=== PATIENT | female | born 1975 | race American Indian/Alaskan Native ===

== ENCOUNTER 2017-02-23 02:30 | Emergency (ER) | payer SELFPAY ==
[2017-02-23] MEDS ORDERED: TYLENOL ONE (02:42)
[2017-02-23] MEDS ORDERED: TYLENOL PO ONE (02:51)
[2017-02-23 03:30] LABS: Bilirubin,Urine NEG (Negative); Blood,Urine NEG (Negative); Ketones,Urine NEG (Negative); Leukocyte Esterase,Urine NEG (Negative); Mucus,Urine FEW /HPF; Nitrite,Urine NEG (Negative); Protein,Urine <15 mg/dL mg/dL (Negative); Urobilinogen,Urine < 2.0 mg/dL (<2.0); WBC,Urine < 1.0 /HPF (0.0-6.0)
[2017-02-23 03:42] LABS: Alanine Aminotransferase 14 units/L (7-56); Albumin 4.1 g/dL (3.9-5); Albumin/Globulin Ratio 1.2 %; Alkaline Phosphatase 64 units/L (35-129); Anion Gap 16 mmol/L; BUN/Creatinine Ratio 16.25; Bilirubin,Total 1.1 mg/dL (0.1-1.2); Blood Urea Nitrogen 13 mg/dL (7-17); Calcium 9.1 mg/dL (8.4-10.2); Carbon Dioxide 25 mmol/L (22-30); Chloride 100.9 mmol/L (98-107); Glucose 113 mg/dL (65-100); Lipase 30 units/L (13-60); Sodium 138 mmol/L (137-145); Total Protein 7.4 g/dL (6.3-8.2)
[2017-02-23 03:44] LABS: Basophils % (Auto) 0.4 % (0.0-1.8); Eosinophils % (Auto) 0.9 % (0.0-4.3); Hematocrit 40.5 % (30.3-42.9); Mean Corpuscular HGB Conc 32 % (30-34); Mean Corpuscular Hemoglobin 27 pg (28-32); Mean Corpuscular Volume 83 fl (79-97); Platelet Count 201 K/mm3 (140-440); Red Blood Count 4.89 M/mm3 (3.65-5.03); Red Cell Distribution Width 14.3 % (13.2-15.2); White Blood Count 8.6 K/mm3 (4.5-11.0)
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
[2017-02-23] MEDS ORDERED: PERCOCET 5/325 PO ONE (08:11)
[2017-02-23] MEDS ORDERED: FLEXERIL PO ONE (08:11)
[2017-02-23] MEDS ORDERED: NACL ONE (08:50)
--- NOTE | 2017-02-23 09:54 | Cat Scan Report ---
CT abdomen and pelvis with contrast: Abdominal pain. Transverse images were obtained from lower chest was scanned with coronal and sagittal 2-D reformatted images. The visualized lungs are clear. The abdominal and retroperitoneal organs are unremarkable. Abdominal aorta is normal. The bowel is unopacified. There are a few diverticula seen in the distal descending colon with no inflammatory changes. The appendix is visible and unremarkable. There are 2 seemingly separate relatively short length segments of fluid-filled dilated small bowel. One of these is in the mid abdomen and the other is in the low abdomen/pelvis. No obvious associated inflammatory changes and no strictures are identified. Of note is that in 2012 the patient also had a CT was dilated small bowel loops in the mid and lower abdomen. Impression: Nonspecific areas of small bowel dilatation. These appear to either be chronic or recurrent with an indeterminate etiology. The possibility of mild adhesions from possible prior surgery should be entertained with appropriate clinical history.
[2017-02-23 10:39] VITALS: BP 151/83
== END 2017-02-23 11:01 | disposition home or self-care (01) ==
LOC: ED 02:30
DX: S39.012A Strain of muscle, fascia and tendon of lower back, initial encounter (principal); K57.30 Diverticulosis of large intestine without perforation or abscess without bleeding; X58.XXXA Exposure to other specified factors, initial encounter; Y93.9 Activity, unspecified; Y92.9 Unspecified place or not applicable; Y99.9 Unspecified external cause status
CPT/HCPCS: 36415; 74177; 80053; 81001; 83690; 85025; 99284; Q9967

== ENCOUNTER 2020-02-08 19:02 | Emergency (ER) | payer SELFPAY ==
--- NOTE | 2020-02-08 19:57 | Event Note ---
ED Screening Note Date of service: 02/08/20 Time: 19:27 ED Screening Note: 44 y/o female comes in for resp sxs and fever. This initial assessment/diagnostic orders/clinical plan/treatment(s) is/are subject to change based on patients health status, clinical progression and re- assessment by fellow clinical providers in the ED. Further treatment and workup at subsequent clinical providers discretion. Patient/guardian urged not to elope from the ED as their condition may be serious if not clinically assessed and managed. Initial orders include:
[2020-02-08] MEDS ORDERED: SODIUM CHLORIDE 0.9% 1000 ML IV SOLN IV ONE (19:58)
--- NOTE | 2020-02-08 20:06 | XRay Report ---
CHEST 2 VIEWS INDICATION: cough. COMPARISON: None. FINDINGS: Support devices: None. Heart: Within normal limits. Lungs/Pleura: No acute air space or interstitial disease. No significant pleural effusion. IMPRESSION: No acute findings. Signer Name: Dustin Gunter MD Signed: 02/08/2020 8:01 PM Workstation Name: [id number]
[2020-02-08 21:38] LABS: Basophils % (Auto) 0.3 % (0.0-1.8); Eosinophils % (Auto) 0.1 % (0.0-4.3); Hematocrit 40.6 % (30.3-42.9); Hemoglobin 13.7 gm/dl (10.1-14.3); Lymphocytes # (Auto) 0.5 K/mm3 (1.2-5.4); Lymphocytes % (Auto) 5.7 % (13.4-35.0); Mean Corpuscular HGB Conc 34 % (30-34); Mean Corpuscular Volume 83 fl (79-97); Monocytes # (Auto) 0.7 K/mm3 (0.0-0.8); Monocytes % (Auto) 8.6 % (0.0-7.3); Platelet Count 202 K/mm3 (140-440); Red Cell Distribution Width 14.7 % (13.2-15.2)
[2020-02-08 21:57] LABS: Albumin 4.4 g/dL (3.9-5); BUN/Creatinine Ratio 16; Blood Urea Nitrogen 11 mg/dL (7-17); Calcium 9.5 mg/dL (8.4-10.2); Hemolysis Index 121
[2020-02-08 22:06] LABS: Alanine Aminotransferase 15 units/L (7-56)
[2020-02-08] MEDS ORDERED: ACETAMINOPHEN 325 MG TAB ONE (22:18)
[2020-02-08] MEDS ORDERED: ACETAMINOPHEN 325 MG TAB PO ONE (22:44)
[2020-02-08] MEDS ORDERED: ONDANSETRON 4 MG/2 ML INJ IV ONE (23:04)
[2020-02-08] MEDS ORDERED: KETOROLAC 30 MG/1 ML INJ IV ONE (23:04)
[2020-02-08] MEDS ORDERED: SODIUM CHLORIDE 0.9% 500 ML 500 ML ONE (23:13)
--- NOTE | 2020-02-08 23:33 | Emergency Department Report ---
ED Fever HPI - General Chief Complaint: Upper Respiratory Infection Stated Complaint: BODY PAIN, WEAK, VOMITING, AND COUGH Time Seen by Provider: 02/08/20 19:27 Source: patient Exam Limitations: no limitations - History of Present Illness Initial Comments: 44-year-old female presents to the hospital with complaints of fever and chills x3 days. Patient having generalized body aches including headache, stomachache, and diffuse myalgias. She has a dry cough with mild chest tightness and sore throat. Patient had one episode of vomiting with persistent nausea, diarrhea, and decreased p.o. intake. Patient denies dysuria. 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 She denies recent travel over the last 14 days or contact with anyone who has traveled to Covid19 infected areas, close contact with the person who is under investigation for Covid19., or close contact with someone who has tested Covid19 +. There are also no reported + Covid19 Cases at her school. Patient did not receive a flu shot. ED Review of Systems ROS: Stated complaint: BODY PAIN, WEAK, VOMITING, AND COUGH Other details as noted in HPI Comment: All other systems reviewed and negative ED Past Medical Hx - Past Medical History Previous Medical History?: Yes Additional medical history: Gastritis, back pain, - Surgical History Additional Surgical History: Colon, Hysterectomy - Social History Smoking Status: Never Smoker Substance Use Type: None - Medications Home Medications: Home Medications Medication Instructions Recorded Confirmed Last Taken Type Cyclobenzaprine [Flexeril] 10 mg PO TID PRN #15 tablet 02/23/17 Unknown Rx traMADoL [Ultram] 50 mg PO Q6HR PRN #20 tablet 02/23/17 Unknown Rx Benzonatate [Tessalon Perles] 100 mg PO Q8HR #20 capsule 02/08/20 Unknown Rx Ibuprofen [Motrin] 800 mg PO Q8HR PRN #30 tablet 02/08/20 Unknown Rx Ondansetron [Zofran Odt] 4 mg PO Q8HR PRN #20 tab.rapdis 02/08/20 Unknown Rx ED Physical Exam - General Limitations: No Limitations - Other Other exam information: General: No acute distress Head: Atraumatic Eyes: normal appearance ENT: Moist mucous membranes Neck: Normal appearance, no midline tenderness Chest: Clear to auscultation bilaterally, clear to auscultation bilaterally, no tachypnea or accessory muscle CV: Mild tachycardia Abdomen: Soft, normal bowel sounds, nontender, nondistended, no rebound or guarding Back: Normal inspection Extremity: Normal inspection, full range of motion Neuro: Alert O x 3, no facial asymmetry, speech clear, no gross motor sensory deficit Psych: Appropriate behavior Skin: No rash ED Course Vital Signs 02/08/20 02/09/20 19:25 01:18 Temperature 101.2 F H 98.6 F Pulse Rate 118 H 98 H Respiratory 18 18 Rate Blood Pressure 147/90 Blood Pressure 130/79 [Right] O2 Sat by Pulse 98 99 Oximetry ED Medical Decision Making - Lab Data Result diagrams: 02/08/20 19:33 02/08/20 19:33 Lab Results 02/08/20 02/08/20 02/08/20 Range/Units 19:33 19:33 19:33 WBC 8.2 (4.5-11.0) K/mm3 RBC 4.90 (3.65-5.03) M/mm3 Hgb 13.7 (10.1-14.3) gm/dl Hct 40.6 (30.3-42.9) % MCV 83 (79-97) fl MCH 28 (28-32) pg MCHC 34 (30-34) % RDW 14.7 (13.2-15.2) % Plt Count 202 (140-440) K/mm3 Lymph % (Auto) 5.7 L (13.4-35.0) % [place] % (Auto) 8.6 H (0.0-7.3) % Eos % (Auto) 0.1 (0.0-4.3) % Baso % (Auto) 0.3 (0.0-1.8) % Lymph # 0.5 L (1.2-5.4) K/mm3 [place] # 0.7 (0.0-0.8) K/mm3 Eos # 0.0 (0.0-0.4) K/mm3 Baso # 0.0 (0.0-0.1) K/mm3 Seg Neutrophils % 85.3 H (40.0-70.0) % Seg Neutrophils # 7.0 (1.8-7.7) K/mm3 Sodium 132 L (137-145) mmol/L Potassium 4.5 (3.6-5.0) mmol/L Chloride 95.6 L (98-107) mmol/L Carbon Dioxide 19 L (22-30) mmol/L Anion Gap 22 mmol/L BUN 11 (7-17) mg/dL Creatinine 0.7 (0.7-1.2) mg/dL Estimated GFR > 60 ml/min BUN/Creatinine Ratio 16 % Glucose 103 H (65-100) mg/dL Lactic Acid 1.90 (0.7-2.0) mmol/L Calcium 9.5 (8.4-10.2) mg/dL Total Bilirubin 0.60 (0.1-1.2) mg/dL AST 22 (5-40) units/L ALT 15 (7-56) units/L Alkaline Phosphatase 67 (35-129) units/L Total Protein 8.4 H (6.3-8.2) g/dL Albumin 4.4 (3.9-5) g/dL Albumin/Globulin Ratio 1.1 % Influenza A (Rapid) (Negative) Influenza B (Rapid) (Negative) Group A Strep Rapid (Negative) 02/08/20 Range/Units Unknown WBC (4.5-11.0) K/mm3 RBC (3.65-5.03) M/mm3 Hgb (10.1-14.3) gm/dl Hct (30.3-42.9) % MCV (79-97) fl MCH (28-32) pg MCHC (30-34) % RDW (13.2-15.2) % Plt Count (140-440) K/mm3 Lymph % (Auto) (13.4-35.0) % [place] % (Auto) (0.0-7.3) % Eos % (Auto) (0.0-4.3) % Baso % (Auto) (0.0-1.8) % Lymph # (1.2-5.4) K/mm3 [place] # (0.0-0.8) K/mm3 Eos # (0.0-0.4) K/mm3 Baso # (0.0-0.1) K/mm3 Seg Neutrophils % (40.0-70.0) % Seg Neutrophils # (1.8-7.7) K/mm3 Sodium (137-145) mmol/L Potassium (3.6-5.0) mmol/L Chloride (98-107) mmol/L Carbon Dioxide (22-30) mmol/L Anion Gap mmol/L BUN (7-17) mg/dL Creatinine (0.7-1.2) mg/dL Estimated GFR ml/min BUN/Creatinine Ratio % Glucose (65-100) mg/dL Lactic Acid (0.7-2.0) mmol/L Calcium (8.4-10.2) mg/dL Total Bilirubin (0.1-1.2) mg/dL AST (5-40) units/L ALT (7-56) units/L Alkaline Phosphatase (35-129) units/L Total Protein (6.3-8.2) g/dL Albumin (3.9-5) g/dL Albumin/Globulin Ratio % Influenza A (Rapid) Negative (Negative) Influenza B (Rapid) Negative (Negative) Group A Strep Rapid Negative (Negative) - Radiology Data Radiology results: report reviewed CHEST 2 VIEWS INDICATION: cough. COMPARISON: None. FINDINGS: Support devices: None. Heart: Within normal limits. Lungs/Pleura: No acute air space or interstitial disease. No significant pleural effusion. IMPRESSION: No acute findings. - Medical Decision Making Based on current CDC screening guidelines patient does not meet criteria for COVId19 testing. Patient's flu swabs were negative. Patient be treated clinically for viral syndrome. Received Tylenol, Toradol, normal saline, and Zofran in the ED with improvement in symptoms. No signs of hypoxia or pulmonary infiltrate at this time - Differential Diagnosis Viral syndrome, pneumonia, flu, covid19. Critical Care Time: No Critical care attestation.: If time is entered above; I have spent that time in minutes in the direct care of this critically ill patient, excluding procedure time. ED Disposition Clinical Impression: Viral illness Disposition: DC-01 TO HOME OR SELFCARE Is pt being admited?: No Does the pt Need Aspirin: No Condition: Stable Instructions: Viral Syndrome (ED) Additional Instructions: Take the medication as prescribed. Also use [id number] Tylenol for additional pain and fever relief. Follow-up with your doctor or doctor/clinic provided. Return if symptoms worsen as indicated by your discharge instructions. Prescriptions: Ibuprofen [Motrin] 800 mg PO Q8HR PRN #30 tablet PRN Reason: Pain , Severe (7-10) Benzonatate [Tessalon Perles] 100 mg PO Q8HR #20 capsule Ondansetron [Zofran Odt] 4 mg PO Q8HR PRN #20 tab.rapdis PRN Reason: Nausea And Vomiting Referrals: PRIMARY CARE, [Primary Care Provider] - 3-5 Days LADAN ESPANA MD [Staff Physician] - 3-5 Days Forms: Work/School Release Form(ED) Time of Disposition: 01:31
[2020-02-09 01:46] VITALS: BP 129/74
== END 2020-02-09 03:00 | disposition home or self-care (01) ==
LOC: ED 19:02
DX: B34.9 Viral infection, unspecified (principal)
CPT/HCPCS: 36415; 71046; 80053; 82140; 85025; 87116; 87400; 87430; 96374; 96375; 99284; J1885; J2405; J7040

== ENCOUNTER 2022-01-14 15:23 | Emergency (ER) | payer BC ==
[2022-01-14 16:04] VITALS: BP 116/76
[2022-01-14] MEDS ORDERED: diphenhydrAMINE 50 MG/ML VIAL IV ONE (19:34)
[2022-01-14] MEDS ORDERED: dexAMETHasone 20 MG/5 ML VIAL IV ONE (19:34)
--- NOTE | 2022-01-14 19:35 | Event Note ---
ED Screening Note Date of service: 01/14/22 Time: 19:34 ED Screening Note: Patient presents with complaints of left hand swelling and pain She states that this occurred to her right hand 2 weeks ago and she was treated at [place] with steroids and that her symptoms resolved She denies any injuries or IV drug use Patient also complains of abdominal pain and bloating She states history of chronic abdominal issues since the of her child 13 years ago, however she is having significant bloating and pain today No urinary symptoms per patient She does have history of abdominal surgery This initial assessment/diagnostic orders/clinical plan/treatment(s) is/are subject to change based on patients health status, clinical progression and re- assessment by fellow clinical providers in the ED. Further treatment and workup at subsequent clinical providers discretion. Patient/guardian urged not to elope from the ED as their condition may be serious if not clinically assessed and managed. Initial orders include: Labs Meds CT abdomen
[2022-01-14 20:25] LABS: Bacteria,Urine 1+ /HPF (Negative); Bilirubin,Urine NEG (Negative); Blood,Urine NEG (Negative); Color,Urine Yellow (Yellow); Mucus,Urine FEW /HPF; Protein,Urine <15 mg/dL mg/dL (Negative)
[2022-01-14 20:25] LABS: Basophils % (Auto) 0.5 % (0.0-1.8); Eosinophils # (Auto) 0.1 K/mm3 (0.0-0.4); Hematocrit 35.3 % (30.3-42.9); Hemoglobin 12.1 gm/dl (10.1-14.3); Lymphocytes # (Auto) 3.4 K/mm3 (1.2-5.4); Lymphocytes % (Auto) 39.6 % (13.4-35.0); Mean Corpuscular HGB Conc 34 % (30-34); Mean Corpuscular Volume 84 fl (79-97); Monocytes # (Auto) 0.8 K/mm3 (0.0-0.8); Monocytes % (Auto) 9.2 % (0.0-7.3); Platelet Count 221 K/mm3 (140-440); Red Blood Count 4.21 M/mm3 (3.65-5.03); Red Cell Distribution Width 14.7 % (13.2-15.2)
[2022-01-14 20:39] LABS: Alanine Aminotransferase 13 units/L (7-56); Albumin 4.1 g/dL (3.9-5); BUN/Creatinine Ratio 20; Blood Urea Nitrogen 16 mg/dL (7-17); Calcium 9.6 mg/dL (8.4-10.2); Hemolysis Index 13
--- NOTE | 2022-01-14 21:51 | Cat Scan Report ---
CT ABDOMEN AND PELVIS WITH CONTRAST INDICATION: Mid abdominal pain and bloating. TECHNIQUE: Axial CT images were obtained through the abdomen and pelvis after IV contrast. All CT scans at this location are performed using CT dose reduction for ALARA by means of automated exposure control. COMPARISON: None available. FINDINGS: LOWER CHEST: Minimal patchy dependent bibasilar atelectasis LIVER: No significant abnormality. GALLBLADDER: No significant abnormality. BILE DUCTS: No significant abnormality. PANCREAS: No significant abnormality. SPLEEN: No significant abnormality. ADRENALS: No significant abnormality. RIGHT KIDNEY and URETER: No significant abnormality. LEFT KIDNEY and URETER: No significant abnormality. STOMACH and SMALL BOWEL: No significant abnormality. COLON: No significant abnormality. APPENDIX: No significant abnormality. PERITONEUM: Small amount of free pelvic fluid. No free air. No fluid collection. LYMPH NODES: No significant adenopathy. AORTA and ARTERIES: No significant abnormality. IVC and VEINS: No significant abnormality. URINARY BLADDER: No significant abnormality. REPRODUCTIVE ORGANS: Absent ADDITIONAL FINDINGS: None. SKELETAL SYSTEM: No significant abnormality. IMPRESSION: 1. Mild bibasilar dependent pneumonia. 2. Small amount of free pelvic fluid likely physiologic. Signer Name: Da Centeno MD Signed: 01/14/2022 9:46 PM Workstation Name: [id number]
--- NOTE | 2022-01-14 23:34 | Emergency Department Report ---
ED Upper Extremity Inj HPI - General Chief Complaint: Extremity Injury, Upper Stated Complaint: HBP/SWELLING Time Seen by Provider: 01/14/22 18:14 Source: patient Mode of arrival: Ambulatory Limitations: No Limitations - History of Present Illness Initial Comments: 46-year-old female the past medical history of chronic hypertension presents to the hospital planing of left hand swelling and pain since yesterday, chronic intermittent digestive issues with increased abdominal pain yesterday, and elevated blood pressure today. Patient noticed itching to her left palm with mild swelling yesterday that then progressed to worsening swelling to the palm and dorsum of the hand. Patient also having increased abdominal cramping with pain only with deep palpation. Positive associated nausea without vomiting. Patient checked her blood pressure today and systolic was 201. She takes losartan daily and clonidine 0.1 mg as needed. Patient took clonidine prior to ED arrival with improvement in BP. No reports of headache, chest pain, or shortness of breath. Patient states she has chronic abdominal pain since receiving a hysterectomy with history of adhesions status post lysis. She also reports a history of diverticulosis. 2 weeks ago patient was at [facility] with similar symptoms of abdominal discomfort and right hand swelling. She was treated with antibiotic, Benadryl, and steroids with improvement. No reports of fevers or trauma. she does not currently have a PMD - Related Data Previous Rx's Medication Instructions Recorded Last Taken Type Cyclobenzaprine [Flexeril] 10 mg PO TID PRN #15 tablet 02/23/17 Unknown Rx traMADoL [Ultram] 50 mg PO Q6HR PRN #20 tablet 02/23/17 Unknown Rx Benzonatate [Tessalon Perles] 100 mg PO Q8HR #20 capsule 02/08/20 Unknown Rx Ibuprofen [Motrin] 800 mg PO Q8HR PRN #30 tablet 02/08/20 Unknown Rx Ondansetron [Zofran Odt] 4 mg PO Q8HR PRN #20 tab.rapdis 02/08/20 Unknown Rx Sulfamethoxazole/Trimethoprim 1 each PO BID #14 tab 01/14/22 Unknown Rx [Bactrim DS TAB] diphenhydrAMINE [Benadryl CAP] 25 mg PO Q6HR PRN #20 capsule 01/14/22 Unknown Rx predniSONE [Deltasone] 20 mg PO BID #10 tab 01/14/22 Unknown Rx Allergies Allergy/AdvReac Type Severity Reaction Status Date / Time No Known Allergies Allergy Verified 01/14/22 16:03 ED Review of Systems ROS: Stated complaint: HBP/SWELLING Other details as noted in HPI Comment: All other systems reviewed and negative ED Past Medical Hx - Past Medical History Additional medical history: Gastritis, back pain, - Surgical History Additional Surgical History: Colon, Hysterectomy - Social History Smoking Status: Never Smoker Substance Use Type: None - Medications Home Medications: Home Medications Medication Instructions Recorded Confirmed Last Taken Type Cyclobenzaprine [Flexeril] 10 mg PO TID PRN #15 tablet 02/23/17 Unknown Rx traMADoL [Ultram] 50 mg PO Q6HR PRN #20 tablet 02/23/17 Unknown Rx Benzonatate [Tessalon Perles] 100 mg PO Q8HR #20 capsule 02/08/20 Unknown Rx Ibuprofen [Motrin] 800 mg PO Q8HR PRN #30 tablet 02/08/20 Unknown Rx Ondansetron [Zofran Odt] 4 mg PO Q8HR PRN #20 tab.rapdis 02/08/20 Unknown Rx Sulfamethoxazole/Trimethoprim 1 each PO BID #14 tab 01/14/22 Unknown Rx [Bactrim DS TAB] diphenhydrAMINE [Benadryl CAP] 25 mg PO Q6HR PRN #20 capsule 01/14/22 Unknown Rx predniSONE [Deltasone] 20 mg PO BID #10 tab 01/14/22 Unknown Rx ED Physical Exam - General Limitations: No Limitations - Other Other exam information: General: No acute distress Head: Atraumatic Eyes: normal appearance ENT: Moist mucous membranes Neck: Normal appearance, no midline tenderness Chest: Clear to auscultation bilaterally CV: Regular rate and rhythm Abdomen: Soft, normal bowel sounds, nontender, nondistended, no rebound or guarding Back: Normal inspection Extremity: Left hand swelling with mild warmth. No erythema. Full range of motion of wrist and fingers. No skin rash. Neuro: Alert O x 3, no facial asymmetry, speech clear, no gross motor sensory deficit Psych: Appropriate behavior Skin: No rash ED Course Vital Signs 01/14/22 16:03 Temperature 98.6 F Pulse Rate 83 Respiratory 18 Rate Blood Pressure 116/76 [Right] O2 Sat by Pulse 100 Oximetry ED Medical Decision Making - Lab Data Result diagrams: 01/14/22 20:11 02/19/22 20:11 Lab Results 01/14/22 01/14/22 01/14/22 Range/Units 20:11 20:11 20:11 WBC 8.7 (4.5-11.0) K/mm3 RBC 4.21 (3.65-5.03) M/mm3 Hgb 12.1 (10.1-14.3) gm/dl Hct 35.3 (30.3-42.9) % MCV 84 (79-97) fl MCH 29 (28-32) pg MCHC 34 (30-34) % RDW 14.7 (13.2-15.2) % Plt Count 221 (140-440) K/mm3 Lymph % (Auto) 39.6 H (13.4-35.0) % Rogers % (Auto) 9.2 H (0.0-7.3) % Eos % (Auto) 1.0 (0.0-4.3) % Baso % (Auto) 0.5 (0.0-1.8) % Lymph # (Auto) 3.4 (1.2-5.4) K/mm3 Rogers # (Auto) 0.8 (0.0-0.8) K/mm3 Eos # (Auto) 0.1 (0.0-0.4) K/mm3 Baso # (Auto) 0.0 (0.0-0.1) K/mm3 Seg Neutrophils % 49.7 (40.0-70.0) % Seg Neutrophils # 4.3 (1.8-7.7) K/mm3 Sodium 136 L (137-145) mmol/L Potassium 3.4 L (3.6-5.0) mmol/L Chloride 99.5 (98-107) mmol/L Carbon Dioxide 23 (22-30) mmol/L Anion Gap 17 mmol/L BUN 16 (7-17) mg/dL Creatinine 0.8 (0.6-1.2) mg/dL Estimated GFR > 60 ml/min BUN/Creatinine Ratio 20 % Glucose 129 H (65-100) mg/dL Calcium 9.6 (8.4-10.2) mg/dL Total Bilirubin 0.90 (0.1-1.2) mg/dL AST 11 (5-40) units/L ALT 13 (7-56) units/L Alkaline Phosphatase 58 (35-129) units/L Total Protein 6.8 (6.3-8.2) g/dL Albumin 4.1 (3.9-5) g/dL Albumin/Globulin Ratio 1.5 % Lipase 36 (13-60) units/L HCG, Qual Negative (Negative) Urine Color (Yellow) Urine Turbidity (Clear) Urine pH (5.0-7.0) Ur Specific [place] (1.003-1.030) Urine Protein (Negative) mg/dL Urine Glucose (UA) (Negative) mg/dL Urine Ketones (Negative) mg/dL Urine Blood (Negative) Urine Nitrite (Negative) Urine Bilirubin (Negative) Urine Urobilinogen (<2.0) mg/dL Ur Leukocyte Esterase (Negative) Urine WBC (Auto) (0.0-6.0) /HPF Urine RBC (Auto) (0.0-6.0) /HPF U Epithel Cells (Auto) (0-13.0) /HPF Urine Bacteria (Auto) (Negative) /HPF Urine Mucus /HPF 01/14/22 Range/Units Unknown WBC (4.5-11.0) K/mm3 RBC (3.65-5.03) M/mm3 Hgb (10.1-14.3) gm/dl Hct (30.3-42.9) % MCV (79-97) fl MCH (28-32) pg MCHC (30-34) % RDW (13.2-15.2) % Plt Count (140-440) K/mm3 Lymph % (Auto) (13.4-35.0) % Rogers % (Auto) (0.0-7.3) % Eos % (Auto) (0.0-4.3) % Baso % (Auto) (0.0-1.8) % Lymph # (Auto) (1.2-5.4) K/mm3 Rogers # (Auto) (0.0-0.8) K/mm3 Eos # (Auto) (0.0-0.4) K/mm3 Baso # (Auto) (0.0-0.1) K/mm3 Seg Neutrophils % (40.0-70.0) % Seg Neutrophils # (1.8-7.7) K/mm3 Sodium (137-145) mmol/L Potassium (3.6-5.0) mmol/L Chloride (98-107) mmol/L Carbon Dioxide (22-30) mmol/L Anion Gap mmol/L BUN (7-17) mg/dL Creatinine (0.6-1.2) mg/dL Estimated GFR ml/min BUN/Creatinine Ratio % Glucose (65-100) mg/dL Calcium (8.4-10.2) mg/dL Total Bilirubin (0.1-1.2) mg/dL AST (5-40) units/L ALT (7-56) units/L Alkaline Phosphatase (35-129) units/L Total Protein (6.3-8.2) g/dL Albumin (3.9-5) g/dL Albumin/Globulin Ratio % Lipase (13-60) units/L HCG, Qual (Negative) Urine Color Yellow (Yellow) Urine Turbidity Clear (Clear) Urine pH 5.0 (5.0-7.0) Ur Specific [place] 1.024 (1.003-1.030) Urine Protein <15 mg/dl (Negative) mg/dL Urine Glucose (UA) Neg (Negative) mg/dL Urine Ketones Neg (Negative) mg/dL Urine Blood Neg (Negative) Urine Nitrite Neg (Negative) Urine Bilirubin Neg (Negative) Urine Urobilinogen 2.0 (<2.0) mg/dL Ur Leukocyte Esterase Neg (Negative) Urine WBC (Auto) 3.0 (0.0-6.0) /HPF Urine RBC (Auto) 2.0 (0.0-6.0) /HPF U Epithel Cells (Auto) 8.0 (0-13.0) /HPF Urine Bacteria (Auto) 1+ (Negative) /HPF Urine Mucus Few /HPF - Radiology Data Radiology results: report reviewed CT ABDOMEN AND PELVIS WITH CONTRAST INDICATION: Mid abdominal pain and bloating. TECHNIQUE: Axial CT images were obtained through the abdomen and pelvis after IV contrast. All CT scans at this location are performed using CT dose reduction for ALARA by means of automated exposure control. COMPARISON: None available. FINDINGS: LOWER CHEST: Minimal patchy dependent bibasilar atelectasis LIVER: No significant abnormality. GALLBLADDER: No significant abnormality. BILE DUCTS: No significant abnormality. PANCREAS: No significant abnormality. SPLEEN: No significant abnormality. ADRENALS: No significant abnormality. RIGHT KIDNEY and URETER: No significant abnormality. LEFT KIDNEY and URETER: No significant abnormality. STOMACH and SMALL BOWEL: No significant abnormality. COLON: No significant abnormality. APPENDIX: No significant abnormality. PERITONEUM: Small amount of free pelvic fluid. No free air. No fluid collection. LYMPH NODES: No significant adenopathy. AORTA and ARTERIES: No significant abnormality. IVC and VEINS: No significant abnormality. URINARY BLADDER: No significant abnormality. REPRODUCTIVE ORGANS: Absent ADDITIONAL FINDINGS: None. SKELETAL SYSTEM: No significant abnormality. IMPRESSION: 1. Mild bibasilar dependent pneumonia. 2. Small amount of free pelvic fluid likely physiologic. - Medical Decision Making 46-year-old female presents to the hospital left hand swelling. Allergic re action versus rheumatologic disorder suspected. Labs unremarkable. Low suspicion for infection given lack of fever and leukocytosis. Patient will be empirically treated with antibiotics, Benadryl, and steroids. Outpatient follow-up will be advised. BP improved with clonidine without signs of endorgan damage. Patient has chronic intermittent abdominal pain without acute findings. She denies respiratory symptoms and reports a history of Covid therefore low suspicion for active pneumonia despite CT read 1 dose of potassium provided for mild hypokalemia Critical Care Time: No Critical care attestation.: If time is entered above; I have spent that time in minutes in the direct care of this critically ill patient, excluding procedure time. ED Disposition Clinical Impression: Swelling of left hand, Uncontrolled hypertension Disposition: 01 HOME / SELF CARE / HOMELESS Is pt being admited?: No Condition: Stable Instructions: Hypertension (ED), Hypertension, Adult, Hand Pain Additional Instructions: Take the medication as prescribed. Follow-up with your doctor or doctor/clinic provided. Return if symptoms worsen as indicated by your discharge instructions. Prescriptions: Sulfamethoxazole/Trimethoprim [Bactrim DS TAB] 1 each PO BID #14 tab diphenhydrAMINE [Benadryl CAP] 25 mg PO Q6HR PRN #20 capsule PRN Reason: Allergy Symptoms predniSONE [Deltasone] 20 mg PO BID #10 tab Referrals: PRIMARY CARE, [Primary Care Provider] - 3-5 Days MISTY JONES MD [Staff Physician] - 7-10 days ([employer]) GUNNAR SAUER MD [Staff Physician] - 3-5 Days (Primary care doctor) LEX HOBBS MD [Staff Physician] - 7-10 days (GI doctor) Time of Disposition: 23:36
[2022-01-14] MEDS ORDERED: POTASSIUM CHLORIDE ER 20 MEQ TAB PO ONE (23:41)
== END 2022-01-15 00:18 | disposition home or self-care (01) ==
LOC: ED 15:23
DX: M79.89 Other specified soft tissue disorders (principal); I10 Essential (primary) hypertension
CPT/HCPCS: 36415; 74177; 80053; 81001; 83690; 84703; 85025; 96374; 96375; 99284; J1100; J1200; Q9967

== ENCOUNTER 2022-01-23 08:24 | Emergency (ER) | payer BC ==
[2022-01-23] MEDS ORDERED: FAMOTIDINE 20 MG/2 ML INJ IV ONE (08:46)
[2022-01-23] MEDS ORDERED: methylPREDNISolone Sod Succinate 125 MG/2 ML INJ IV ONE (08:46)
[2022-01-23] MEDS ORDERED: diphenhydrAMINE 50 MG/ML VIAL IV ONE (08:46)
--- NOTE | 2022-01-23 08:47 | Emergency Department Report ---
HPI - General Chief Complaint: Allergic Reaction PUI?: No Time Seen by Provider: 01/23/22 08:46 - HPI HPI: 46 yo comes to ER with hives and lower lip swelling Was on ARB until recently changed to labetolol. However, her BP was elevated yesterday so she took a losartan also on labetolol clonidine hctz and sulfa she is on sulfa per the urgent care for a "skin rash." abc intact vss no cp no sob no fever or chills ED Past Medical Hx - Past Medical History Previous Medical History?: Yes Hx Hypertension: Yes Additional medical history: Gastritis, back pain, - Surgical History Past Surgical History?: Yes Additional Surgical History: Colon, Hysterectomy - Family History Family history: no significant - Social History Smoking Status: Never Smoker Substance Use Type: None - Medications Home Medications: Home Medications Medication Instructions Recorded Confirmed Last Taken Type Famotidine [Pepcid] 20 mg PO DAILY #30 tablet 01/23/22 Unknown Rx diphenhydrAMINE [Benadryl CAP] 25 mg PO Q8HR PRN #20 capsule 01/23/22 Unknown Rx methylPREDNISolone [Medrol 4MG 4 mg PO FS #1 tab.ds.pk 01/23/22 Unknown Rx DOSEPAK (21 tabs)] ED Review of Systems ROS: Stated complaint: ALLERGIC REACTION Other details as noted in HPI Comment: All other systems reviewed and negative Constitutional: denies: chills, fever Eyes: denies: eye pain, eye discharge, vision change ENT: denies: ear pain, throat pain Respiratory: denies: cough, shortness of breath, wheezing Cardiovascular: denies: chest pain, palpitations Endocrine: no symptoms reported Gastrointestinal: denies: abdominal pain, nausea, diarrhea Genitourinary: denies: urgency, dysuria, discharge Musculoskeletal: denies: back pain, joint swelling, arthralgia Skin: denies: rash, lesions Neurological: denies: headache, weakness, paresthesias Psychiatric: denies: anxiety, depression Hematological/Lymphatic: denies: easy bleeding, easy bruising Physical Exam - Physical Exam Vital Signs: Vital Signs 01/23/22 08:29 Temperature 98.7 F Pulse Rate 100 H Respiratory 18 Rate Blood Pressure 127/87 O2 Sat by Pulse 97 Oximetry Physical Exam: alert oriented vss abc intact lungs cta lower lip swelling uvula midline no pharyngeal swelling abd snt ambulatory without hypoxia skin warm dry hives on bue ED Course Vital Signs 01/23/22 08:29 Temperature 98.7 F Pulse Rate 100 H Respiratory 18 Rate Blood Pressure 127/87 O2 Sat by Pulse 97 Oximetry - Reevaluation(s) Reevaluation #1: 01/23/22 10:01 vss reports feeling better ED Medical Decision Making - Medical Decision Making Vital Signs 01/23/22 08:29 Temperature 98.7 F Pulse Rate 100 H Respiratory 18 Rate Blood Pressure 127/87 O2 Sat by Pulse 97 Oximetry medicated with solumedrol/benadryl and pepcid med rec with pt she is to stop bactrum and losartan she will continue clonidine/labetolol/hctz on reexam taking po- dec swelling of lip dc home with dc plan of care which was reviewed in depth with pt-- NO losartan/kajal/arb/bactrum/sulfa products; she will go home on: prednisone/benadry/pepcid; and follow up She verbalizes understanding of plan of care - Differential Diagnosis angioedema on arb/ other allergic response to bactrum Critical care attestation.: If time is entered above; I have spent that time in minutes in the direct care of this critically ill patient, excluding procedure time. ED Disposition Clinical Impression: Allergic reaction Disposition: 01 HOME / SELF CARE / HOMELESS Is pt being admited?: No Does the pt Need Aspirin: No Condition: Stable Instructions: Allergies, Adult, [id number] Additional Instructions: REPORT ALLERGY TO SULFA AND KAJAL/ARB MEDS-- REPORT LIP SWELLING SIDE EFFECT MEDS ORDERED TODAY FOLLOW UP WITH BUSINESS [employer]LL[employer] REFERRALS BELOW FOLLOW UP WITH PCP REGARDING YOUR BP MANAGEMENT WE DISCUSSED DIET AND ACTIVITY TOLERATED Prescriptions: diphenhydrAMINE [Benadryl CAP] 25 mg PO Q8HR PRN #20 capsule PRN Reason: Itching methylPREDNISolone [Medrol 4MG DOSEPAK (21 tabs)] 4 mg PO FS #1 tab.ds.pk Famotidine [Pepcid] 20 mg PO DAILY #30 tablet Referrals: LADAN EPSANA MD [Staff Physician] - 3-5 Days LYNETTE HANKS MD [Referring] - 3-5 Days EUGENIO MORRISON MD [Referring] - 3-5 Days TISH DOE MD [Referring] - 3-5 Days HERIBERTO ROSENBERG MD [Staff Physician] - 3-5 Days Time of Disposition: 10:02
[2022-01-23] MEDS ORDERED: FAMOTIDINE 20 MG TAB PO ONE (10:06)
[2022-01-23 10:38] VITALS: BP 121/79
== END 2022-01-23 10:59 | disposition home or self-care (01) ==
LOC: ED 08:24
DX: T78.40XA Allergy, unspecified, initial encounter (principal); I10 Essential (primary) hypertension; Z98.890 Other specified postprocedural states; X58.XXXA Exposure to other specified factors, initial encounter
CPT/HCPCS: 96374; 96375; 99282; J1200; J2930; J3490

== ENCOUNTER 2022-02-08 05:43 | Emergency (ER) | payer BC ==
[2022-02-08] MEDS ORDERED: methylPREDNISolone Sod Succinate 125 MG/2 ML INJ ONE (06:10)
[2022-02-08] MEDS: diphenhydrAMINE 50 MG/ML VIAL IV ONE ×2 (06:17→07:39)
[2022-02-08] MEDS: methylPREDNISolone Sod Suc 125 MG in SODIUM CHLORIDE 0.9% 100 ML IV ONE ×2 (06:17→07:41)
[2022-02-08] MEDS: FAMOTIDINE 20 MG/2 ML INJ IV ONE ×2 (06:17→07:39)
[2022-02-08] MEDS ORDERED: methylPREDNISolone Sod Succinate 125 MG/2 ML INJ IV ONE (06:39)
[2022-02-08] MEDS ORDERED: FAMOTIDINE 20 MG/2 ML INJ IV ONE (06:39)
[2022-02-08] MEDS ORDERED: SODIUM CHLORIDE 0.9% 1000 ML 1,000 ML IV ONE (06:39)
--- NOTE | 2022-02-08 07:39 | XRay Report ---
CHEST 1 VIEW 02/08/2022 6:24 AM INDICATION / CLINICAL INFORMATION: Allergic Reaction. COMPARISON: 02/08/2020. FINDINGS: SUPPORT DEVICES: None. HEART / MEDIASTINUM: No significant abnormality. LUNGS / PLEURA: No significant pulmonary or pleural abnormality. No pneumothorax. ADDITIONAL FINDINGS: No significant additional findings. IMPRESSION: No acute abnormality. Signer Name: Dustin Gunter MD Signed: 02/08/2022 7:34 AM Workstation Name: [id number]
[2022-02-08 08:56] LABS: Basophils % (Auto) 0.4 % (0.0-1.8); Eosinophils % (Auto) 0.6 % (0.0-4.3); Hematocrit 37.3 % (30.3-42.9); Hemoglobin 12.2 gm/dl (10.1-14.3); Lymphocytes # (Auto) 1.3 K/mm3 (1.2-5.4); Lymphocytes % (Auto) 15.5 % (13.4-35.0); Mean Corpuscular HGB Conc 33 % (30-34); Mean Corpuscular Volume 85 fl (79-97); Monocytes # (Auto) 0.2 K/mm3 (0.0-0.8); Monocytes % (Auto) 2.4 % (0.0-7.3); Platelet Count 188 K/mm3 (140-440); Red Blood Count 4.38 M/mm3 (3.65-5.03); Red Cell Distribution Width 15.2 % (13.2-15.2)
[2022-02-08 09:11] LABS: Alanine Aminotransferase 20 units/L (7-56); Albumin 4.1 g/dL (3.9-5); BUN/Creatinine Ratio 18; Blood Urea Nitrogen 14 mg/dL (7-17); Calcium 9.7 mg/dL (8.4-10.2); Hemolysis Index 4
--- NOTE | 2022-02-08 10:00 | Emergency Department Report ---
HPI - General Chief Complaint: Allergic Reaction Time Seen by Provider: 02/08/22 06:21 - HPI HPI: Pt came in c/o allergic reaction that started around 0400 to unknown substance. Pt has upper lip swelling, no SOB, no collection of saliva in mouth or diffic ulty swallowing pt states. Pt states she has had an allergic reaction to her blood pressure medication before and is now not taking those blood pressure meds. pt had similar episodes last week and was on lisinopril, stopped it and was given labetalol, but today started having same symtpoms takes benadryl every 6 hours ED Past Medical Hx - Past Medical History Hx Hypertension: Yes Hx CVA: No Additional medical history: Gastritis, back pain, - Surgical History Additional Surgical History: Colon, Hysterectomy - Social History Smoking Status: Never Smoker Substance Use Type: None - Medications Home Medications: Home Medications Medication Instructions Recorded Confirmed Last Taken Type Famotidine [Pepcid] 20 mg PO DAILY #30 tablet 01/23/22 Unknown Rx diphenhydrAMINE [Benadryl CAP] 25 mg PO Q8HR PRN #20 capsule 01/23/22 Unknown Rx methylPREDNISolone [Medrol 4MG 4 mg PO FS #1 tab.ds.pk 01/23/22 Unknown Rx DOSEPAK (21 tabs)] Famotidine [Pepcid] 20 mg PO BID #30 tablet 02/08/22 Unknown Rx Loratadine 10 mg PO DAILY #30 cap 02/08/22 Unknown Rx ED Review of Systems ROS: Stated complaint: ALLERGIC REACTION Other details as noted in HPI Constitutional: denies: chills, fever Eyes: denies: eye pain, eye discharge, vision change ENT: denies: ear pain, throat pain Respiratory: denies: cough, shortness of breath, wheezing Cardiovascular: denies: chest pain, palpitations Endocrine: no symptoms reported Gastrointestinal: denies: abdominal pain, nausea, diarrhea Genitourinary: denies: urgency, dysuria, discharge Musculoskeletal: denies: back pain, joint swelling, arthralgia Skin: denies: rash, lesions Neurological: denies: headache, weakness, paresthesias Psychiatric: denies: anxiety, depression Hematological/Lymphatic: denies: easy bleeding, easy bruising Physical Exam - Physical Exam Vital Signs: Vital Signs 02/08/22 02/08/22 02/08/22 06:00 06:19 06:24 Temperature 98 F Pulse Rate 86 Respiratory 16 25 H Rate Blood Pressure Blood Pressure 122/89 [Right] O2 Sat by Pulse 100 97 Oximetry 02/08/22 02/08/22 02/08/22 06:31 06:45 07:01 Temperature Pulse Rate 76 80 79 Respiratory 23 16 17 Rate Blood Pressure 140/94 140/94 149/88 Blood Pressure [Right] O2 Sat by Pulse 99 99 98 Oximetry 02/08/22 02/08/22 02/08/22 07:15 07:31 07:45 Temperature Pulse Rate 75 77 77 Respiratory 13 15 14 Rate Blood Pressure 149/88 149/88 149/88 Blood Pressure [Right] O2 Sat by Pulse 98 98 98 Oximetry 02/08/22 08:01 Temperature Pulse Rate 76 Respiratory 14 Rate Blood Pressure 134/84 Blood Pressure [Right] O2 Sat by Pulse 97 Oximetry General: awake and alert angiuoedema noted to mouth and face ED Course Vital Signs 02/08/22 02/08/22 02/08/22 06:00 06:19 06:24 Temperature 98 F Pulse Rate 86 Respiratory 16 25 H Rate Blood Pressure Blood Pressure 122/89 [Right] O2 Sat by Pulse 100 97 Oximetry 02/08/22 02/08/22 02/08/22 06:31 06:45 07:01 Temperature Pulse Rate 76 80 79 Respiratory 23 16 17 Rate Blood Pressure 140/94 140/94 149/88 Blood Pressure [Right] O2 Sat by Pulse 99 99 98 Oximetry 02/08/22 02/08/22 02/08/22 07:15 07:31 07:45 Temperature Pulse Rate 75 77 77 Respiratory 13 15 14 Rate Blood Pressure 149/88 149/88 149/88 Blood Pressure [Right] O2 Sat by Pulse 98 98 98 Oximetry 02/08/22 08:01 Temperature Pulse Rate 76 Respiratory 14 Rate Blood Pressure 134/84 Blood Pressure [Right] O2 Sat by Pulse 97 Oximetry ED Medical Decision Making - Lab Data Result diagrams: 02/08/22 07:40 02/08/22 07:40 - Medical Decision Making work up neg , steriods and pepcid and antihistamine given vss no distress, will refer to allergy Critical care attestation.: If time is entered above; I have spent that time in minutes in the direct care of this critically ill patient, excluding procedure time. ED Disposition Clinical Impression: Angioedema due to angiotensin converting enzyme inhibitor (KAJAL-I) Disposition: HOME / SELF CARE / HOMELESS Is pt being admited?: No Does the pt Need Aspirin: No Condition: Stable Instructions: Angioedema, [id number] Prescriptions: Loratadine 10 mg PO DAILY #30 cap Famotidine [Pepcid] 20 mg PO BID #30 tablet Referrals: PRIMARY CAREMD [Primary Care Provider] - 3-5 Days SAMANTA LORD MD [Referring] - 3-5 Days LYNETTE HANKS MD [Referring] - 3-5 Days
[2022-02-08 10:59] VITALS: BP 140/82
== END 2022-02-08 10:26 | disposition home or self-care (01) ==
LOC: ED 05:43
DX: T78.3XXA Angioneurotic edema, initial encounter (principal); I10 Essential (primary) hypertension
CPT/HCPCS: 36415; 71045; 80053; 84443; 85025; 86140; 96365; 96375; 99284; J1200; J2930; J3490

== ENCOUNTER 2022-04-01 10:14 | Emergency (ER) | payer BC ==
[2022-04-01] MEDS ORDERED: diphenhydrAMINE 25 MG CAP PO ONE (12:32)
[2022-04-01] MEDS ORDERED: FAMOTIDINE 20 MG TAB PO ONE (12:32)
[2022-04-01] MEDS ORDERED: dexAMETHasone 20 MG/5 ML VIAL IM ONE (12:32)
[2022-04-01] MEDS ORDERED: HYDROcodone/ACETAMINOPHEN 5-325 MG TAB PO ONE (12:33)
--- NOTE | 2022-04-01 12:43 | Emergency Department Report ---
HPI - General Chief Complaint: Allergic Reaction Time Seen by Provider: 04/01/22 12:17 - HPI HPI: 46-year-old female who presents for allergic reaction to patient states similar reactions x2 this year. Symptoms today include erythema itching to bilateral hands mild facial swelling. There is no wheezing no shortness of breath no fevers or chills no air hunger. Patient states unknown triggers followed by clinical informatics spec. Has completed allergy testing results pending. Patient denies history of asthma or bronchitis. Patient drove self to ED today. There is no shortness of breath no chest pain no nausea vomiting no lightheadedness no dizziness no chest pain. 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, Has nmet with a clinical informatics spec about several allergic reactions - Surgical History Past Surgical History?: Yes Additional Surgical History: Colon, Hysterectomy - Social History Smoking Status: Never Smoker Substance Use Type: None - Medications Home Medications: Home Medications Medication Instructions Recorded Confirmed Last Taken Type Famotidine [Pepcid] 20 mg PO DAILY #30 tablet 01/23/22 04/01/22 Unknown Rx methylPREDNISolone [Medrol 4MG 4 mg PO FS #1 tab.ds.pk 01/23/22 04/01/22 Unknown Rx DOSEPAK (21 tabs)] Loratadine 10 mg PO DAILY #30 cap 02/08/22 04/01/22 Unknown Rx EPINEPHrine [Epipen 2-Marcelino] 0.3 mg IJ PRN PRN #1 each 04/01/22 Unknown Rx Famotidine [Pepcid] 20 mg PO BID 7 Days #14 tablet 04/01/22 Unknown Rx dexAMETHasone [Decadron] 4 mg PO BID 5 Days #10 tablet 04/01/22 Unknown Rx diphenhydrAMINE [Benadryl CAP] 25 mg PO Q8HR PRN #30 capsule 04/01/22 Unknown Rx traMADoL [Ultram] 50 mg PO Q6HR PRN #12 tablet 04/01/22 Unknown Rx ED Review of Systems ROS: Stated complaint: FACE/LIP SWELLING Other details as noted in HPI Constitutional: denies: chills, fever Eyes: denies: eye pain, eye discharge, vision change ENT: denies: ear pain, throat pain Respiratory: no symptoms reported Cardiovascular: denies: chest pain, palpitations Endocrine: no symptoms reported Gastrointestinal: denies: abdominal pain, nausea, vomiting, diarrhea Genitourinary: denies: urgency, dysuria, discharge Musculoskeletal: denies: back pain, joint swelling, arthralgia Skin: rash, pruritus Neurological: denies: headache, weakness, numbness, paresthesias, confusion, vertigo Psychiatric: denies: anxiety, depression Hematological/Lymphatic: denies: easy bleeding, easy bruising Physical Exam - Physical Exam Vital Signs: Vital Signs 04/01/22 10:43 Temperature 98.4 F Pulse Rate 92 H Respiratory 18 Rate Blood Pressure 172/101 O2 Sat by Pulse 100 Oximetry General: Patient appears well and nontoxic in no acute distress Physical Exam: Patient is alert oriented x3, airway is patent no swelling no lesions no stridor no wheezing. Lungs are clear throughout. Heart sounds are normal. Abdomen soft nontender. Rash is smooth nonraised mild erythema the face and bilateral hands. Normal oral swelling. Airway is patent. ED Course Vital Signs 04/01/22 10:43 Temperature 98.4 F Pulse Rate 92 H Respiratory 18 Rate Blood Pressure 172/101 O2 Sat by Pulse 100 Oximetry - Reevaluation(s) Reevaluation #1: Decadron, Benadryl, Pepcid, hydrocodone. Vital signs noted O2 sat is 100% on room air at this time. 04/01/22 12:42 ED Medical Decision Making - Medical Decision Making Patient symptoms are improved at this time. Airway is patent. There is no wheezing no stridor no swelling. Lung sounds are clear throughout. Facial swelling is improved. Plan DC to home with prescriptions. Follow-up with your primary doctor in 2 to 3 days. Return to emergency department should symptoms worsen. Patient verbalized agreement understanding of discharge plan. Patient DC'd home in stable condition at this time. Critical care attestation.: If time is entered above; I have spent that time in minutes in the direct care of this critically ill patient, excluding procedure time. ED Disposition Clinical Impression: Allergic reaction Qualifiers: Encounter type: initial encounter Qualified Code(s): T78.40XA - Allergy, unspecified, initial encounter Disposition: HOME / SELF CARE / HOMELESS Is pt being admited?: No Does the pt Need Aspirin: No Condition: Stable Instructions: Allergies, Adult, [id number], Allergies, Adult, Epinephrine injection (Auto-injector) Additional Instructions: Take medications as prescribed, follow with your doctor in 2 to 3 days. Return to emergency if symptoms worsen. Prescriptions: diphenhydrAMINE [Benadryl CAP] 25 mg PO Q8HR PRN #30 capsule PRN Reason: Itching dexAMETHasone [Decadron] 4 mg PO BID 5 Days #10 tablet EPINEPHrine [Epipen 2-Marcelino] 0.3 mg IJ PRN PRN #1 each PRN Reason: severe allergy symptoms Famotidine [Pepcid] 20 mg PO BID 7 Days #14 tablet traMADoL [Ultram] 50 mg PO Q6HR PRN #12 tablet PRN Reason: Pain Referrals: KAMRAN IBARRA MD [Staff Physician] - 3-5 Days Forms: Work/School Release Form(ED) Time of Disposition: 13:35
[2022-04-01 14:14] VITALS: BP 122/85
== END 2022-04-01 14:13 | disposition home or self-care (01) ==
LOC: ED 10:14
DX: T78.40XA Allergy, unspecified, initial encounter (principal); I10 Essential (primary) hypertension; X58.XXXA Exposure to other specified factors, initial encounter
CPT/HCPCS: 96372; 99282; J1100

== ENCOUNTER 2022-04-05 06:28 | Emergency (ER) | payer BC ==
--- NOTE | 2022-04-05 07:53 | Emergency Department Report ---
ED ENT HPI - General Chief complaint: Dental/Oral Stated complaint: ALLERGIC REACTION RT SIDE OF FACE Time Seen by Provider: 04/05/22 07:33 Source: patient Mode of arrival: Ambulatory Limitations: No Limitations - History of Present Illness Initial comments: 46-year-old female James emerged from complaining a few day history of right lower molar pain which occurred after she took. Allergy medicines. She began having some pain and tenderness to her right lower molar area where she had dental caries with fractures. She noted some swelling and tenderness to the adjacent gumline and when she woke this morning the area was swollen with pain. No discharge. No fever, chills, sweats. No odynophagia or dysphagia MD complaint: tooth pain -: Gradual Location: tooth # Severity: mild, moderate Quality: dull Consistency: constant Improves with: none Worsens with: none Context- Dental: history of dental caries Associated Symptoms: toothache - Related Data Previous Rx's Medication Instructions Recorded Last Taken Type Famotidine [Pepcid] 20 mg PO DAILY #30 tablet 01/23/22 Unknown Rx methylPREDNISolone [Medrol 4MG 4 mg PO FS #1 tab.ds.pk 01/23/22 Unknown Rx DOSEPAK (21 tabs)] Loratadine 10 mg PO DAILY #30 cap 02/08/22 Unknown Rx EPINEPHrine [Epipen 2-Marcelino] 0.3 mg IJ PRN PRN #1 each 04/01/22 Unknown Rx Famotidine [Pepcid] 20 mg PO BID 7 Days #14 tablet 04/01/22 Unknown Rx dexAMETHasone [Decadron] 4 mg PO BID 5 Days #10 tablet 04/01/22 Unknown Rx diphenhydrAMINE [Benadryl CAP] 25 mg PO Q8HR PRN #30 capsule 04/01/22 Unknown Rx traMADoL [Ultram] 50 mg PO Q6HR PRN #12 tablet 04/01/22 Unknown Rx Amoxicillin [Amoxicillin TAB] 875 mg PO BID #20 tablet 04/05/22 Unknown Rx Chlorhexidine Mouthwash [Peridex] 15 ml MM BID #1 bottle 04/05/22 Unknown Rx Ketorolac [Toradol] 10 mg PO Q6H PRN #15 tablet 04/05/22 Unknown Rx Lidocaine Viscous 2% 5 ml MM Q3H PRN #120 udc 04/05/22 Unknown Rx Allergies Allergy/AdvReac Type Severity Reaction Status Date / Time KAJAL Inhibitors Allergy Swelling Verified 04/01/22 13:24 ARB-Angiotensin Receptor Allergy Swelling Verified 04/01/22 13:24 Antagonist Sulfa (Sulfonamide Allergy Swelling Verified 04/01/22 13:24 Antibiotics) ED Dental HPI - General Chief complaint: Dental/Oral Stated complaint: ALLERGIC REACTION RT SIDE OF FACE Time Seen by Provider: 04/05/22 07:33 Source: patient Mode of arrival: Ambulatory Limitations: No Limitations - Related Data Previous Rx's Medication Instructions Recorded Last Taken Type Famotidine [Pepcid] 20 mg PO DAILY #30 tablet 01/23/22 Unknown Rx methylPREDNISolone [Medrol 4MG 4 mg PO FS #1 tab.ds.pk 01/23/22 Unknown Rx DOSEPAK (21 tabs)] Loratadine 10 mg PO DAILY #30 cap 02/08/22 Unknown Rx EPINEPHrine [Epipen 2-Marcelino] 0.3 mg IJ PRN PRN #1 each 04/01/22 Unknown Rx Famotidine [Pepcid] 20 mg PO BID 7 Days #14 tablet 04/01/22 Unknown Rx dexAMETHasone [Decadron] 4 mg PO BID 5 Days #10 tablet 04/01/22 Unknown Rx diphenhydrAMINE [Benadryl CAP] 25 mg PO Q8HR PRN #30 capsule 04/01/22 Unknown Rx traMADoL [Ultram] 50 mg PO Q6HR PRN #12 tablet 04/01/22 Unknown Rx Amoxicillin [Amoxicillin TAB] 875 mg PO BID #20 tablet 04/05/22 Unknown Rx Chlorhexidine Mouthwash [Peridex] 15 ml MM BID #1 bottle 04/05/22 Unknown Rx Ketorolac [Toradol] 10 mg PO Q6H PRN #15 tablet 04/05/22 Unknown Rx Lidocaine Viscous 2% 5 ml MM Q3H PRN #120 udc 04/05/22 Unknown Rx Allergies Allergy/AdvReac Type Severity Reaction Status Date / Time KAJAL Inhibitors Allergy Swelling Verified 04/01/22 13:24 ARB-Angiotensin Receptor Allergy Swelling Verified 04/01/22 13:24 Antagonist Sulfa (Sulfonamide Allergy Swelling Verified 04/01/22 13:24 Antibiotics) ED Review of Systems ROS: Stated complaint: ALLERGIC REACTION RT SIDE OF FACE Other details as noted in HPI Comment: All other systems reviewed and negative ED Past Medical Hx - Past Medical History Hx Hypertension: Yes Hx CVA: No Additional medical history: Gastritis, back pain, Urticaria, Angioedema, Coronavirus in 2021, 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, Has nmet with a bee worker about several allergic reactions - Surgical History Additional Surgical History: Colon, Hysterectomy - Social History Smoking Status: Never Smoker Substance Use Type: None - Medications Home Medications: Home Medications Medication Instructions Recorded Confirmed Last Taken Type Famotidine [Pepcid] 20 mg PO DAILY #30 tablet 01/23/22 04/01/22 Unknown Rx methylPREDNISolone [Medrol 4MG 4 mg PO FS #1 tab.ds.pk 01/23/22 04/01/22 Unknown Rx DOSEPAK (21 tabs)] Loratadine 10 mg PO DAILY #30 cap 02/08/22 04/01/22 Unknown Rx EPINEPHrine [Epipen 2-Marcelino] 0.3 mg IJ PRN PRN #1 each 04/01/22 Unknown Rx Famotidine [Pepcid] 20 mg PO BID 7 Days #14 tablet 04/01/22 Unknown Rx dexAMETHasone [Decadron] 4 mg PO BID 5 Days #10 tablet 04/01/22 Unknown Rx diphenhydrAMINE [Benadryl CAP] 25 mg PO Q8HR PRN #30 capsule 04/01/22 Unknown Rx traMADoL [Ultram] 50 mg PO Q6HR PRN #12 tablet 04/01/22 Unknown Rx Amoxicillin [Amoxicillin TAB] 875 mg PO BID #20 tablet 04/05/22 Unknown Rx Chlorhexidine Mouthwash [Peridex] 15 ml MM BID #1 bottle 04/05/22 Unknown Rx Ketorolac [Toradol] 10 mg PO Q6H PRN #15 tablet 04/05/22 Unknown Rx Lidocaine Viscous 2% 5 ml MM Q3H PRN #120 udc 04/05/22 Unknown Rx ED Physical Exam - General Limitations: No Limitations General appearance: alert, in no apparent distress - Head Head exam: Present: atraumatic, normocephalic - Eye Eye exam: Present: normal appearance - ENT ENT exam: Present: normal exam, mucous membranes moist, other - Expanded ENT Exam Expanded Teeth exam: Present: dental caries, dental tenderness # 1 - Dental Tenderness, Other (Many dental caries in this region with some adjacent gingival swelling to the lateral aspect of tooth #29 and 30 with an early abscess formation.) 2 - Other (Airway patent tongue and uvula midline no evidence of any abscess) - Neck Neck exam: Present: normal inspection - Respiratory Respiratory exam: Present: normal lung sounds bilaterally. Absent: respiratory distress - Cardiovascular Cardiovascular Exam: Present: regular rate, normal rhythm. Absent: systolic murmur, diastolic murmur, rubs, gallop - GI/Abdominal GI/Abdominal exam: Present: soft, normal bowel sounds - Extremities Exam Extremities exam: Present: normal inspection - Back Exam Back exam: Present: normal inspection - Neurological Exam Neurological exam: Present: alert, oriented X3 - Psychiatric Psychiatric exam: Present: normal affect, normal mood - Skin Skin exam: Present: warm, dry, intact, normal color. Absent: rash ED Course Vital Signs 04/05/22 06:35 Temperature 98.5 F Pulse Rate 89 Respiratory 16 Rate Blood Pressure 158/91 [Right] O2 Sat by Pulse 99 Oximetry Critical care attestation.: If time is entered above; I have spent that time in minutes in the direct care of this critically ill patient, excluding procedure time. ED Disposition Clinical Impression: Infected dental caries, Dental abscess Disposition: 01 HOME / SELF CARE / HOMELESS Is pt being admited?: No Does the pt Need Aspirin: No Condition: Stable Instructions: Dental Abscess, Preventive Dental Care, Adult Prescriptions: Amoxicillin [Amoxicillin TAB] 875 mg PO BID #20 tablet Lidocaine Viscous 2% 5 ml MM Q3H PRN #120 udc PRN Reason: Pain, Moderate (4-6) Chlorhexidine Mouthwash [Peridex] 15 ml MM BID #1 bottle Ketorolac [Toradol] 10 mg PO Q6H PRN #15 tablet PRN Reason: Pain Referrals: [facility] [Outside] - 3-5 Days
[2022-04-05 09:15] VITALS: BP 128/86
== END 2022-04-05 08:48 | disposition home or self-care (01) ==
LOC: ED 06:28
DX: K02.9 Dental caries, unspecified (principal); K04.7 Periapical abscess without sinus; I10 Essential (primary) hypertension; K29.70 Gastritis, unspecified, without bleeding; Z98.890 Other specified postprocedural states; Z88.2 Allergy status to sulfonamides; Z88.8 Allergy status to other drugs, medicaments and biological substances
CPT/HCPCS: 99282